=== PATIENT | female | born 1955 | race Caucasian/White ===

== ENCOUNTER 2023-07-18 15:46 | Emergency (ER) | payer OTHER, MEDICARE ==
[2023-07-18] MEDS ORDERED: Lidocaine 1% (PF) 30 ML VIAL ONE (17:38)
[2023-07-18] MEDS ORDERED: Lidocaine 1% w/Epinephrine 1:200K 30 ML VIAL ONE (17:38)
[2023-07-18] MEDS ORDERED: HYDROcodone/Acetaminophen 5/325 mg Tablet ONE (18:46)
== END 2023-07-18 18:50 | disposition home or self-care (01) ==
LOC: CSHERS 15:46
DX: S52.572A Other intraarticular fracture of lower end of left radius, initial encounter for closed fracture (principal); I10 Essential (primary) hypertension; E11.9 Type 2 diabetes mellitus without complications; W01.0XXA Fall on same level from slipping, tripping and stumbling without subsequent striking against object, initial encounter
CPT/HCPCS: J2001